=== PATIENT | female | born 1985 | race Two or more races ===

== ENCOUNTER 2021-05-30 13:56 | Emergency (ER) | payer SELFPAY ==
[2021-05-31 17:10] LABS: SARS-CoV-2 PCR by NAA Not Detected (NotDetected)
== END 2021-05-30 16:06 | disposition home or self-care (01) ==
LOC: CSHERS 13:56
DX: R09.81 Nasal congestion (principal); R06.02 Shortness of breath; R05 Cough; R68.83 Chills (without fever); D50.9 Iron deficiency anemia, unspecified; J45.909 Unspecified asthma, uncomplicated; F17.210 Nicotine dependence, cigarettes, uncomplicated; Z20.822 Contact with and (suspected) exposure to COVID-19
CPT/HCPCS: 99283; U0003; U0005